=== PATIENT | male | born 1960 | race Caucasian/White ===

== ENCOUNTER 2022-12-06 11:19 | Observation (INO) ==
[2022-12-06 11:40] VITALS: BMI 21.9
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
[2022-12-06] MEDS ORDERED: NS 1,000 ML IV 1,000 ML ONE (11:58)
[2022-12-06] MEDS ORDERED: NS 1,000 ML IV 1,000 ML IV ONE (12:02)
[2022-12-06 12:24] LABS: BASOPHILS % (AUTO) 0.3 % (0.2-1.0); EOSINOPHILS # (AUTO) 0.1 x10^3/uL (0.0-0.2); EOSINOPHILS % (AUTO) 0.8 % (0.9-2.9); HEMATOCRIT 44.1 % (42.0-54.0); HEMOGLOBIN 15.3 g/dL (13.5-18.0); LYMPHOCYTES % (AUTO) 15.4 % (21.0-51.0); MEAN CORPUSCULAR HEMOGLOBIN 31.7 pg (27.0-34.0); MEAN CORPUSCULAR HGB CONC 34.7 g/dL (33.0-35.0); MEAN CORPUSCULAR VOLUME 91.2 fL (80.0-100.0); MEAN PLATELET VOLUME 7.9 fL (7.4-11.0); NEUTROPHILS # (AUTO) 9.6 x10^3/uL (2.2-4.8); NEUTROPHILS % (AUTO) 75.5 % (42.0-75.0); PLATELET COUNT 272 X10^3/uL (150.0-450.0); RED BLOOD COUNT 4.84 X10^6/uL (4.7-6.0); RED CELL DISTRIBUTION WIDTH 12.8 % (11.6-16.5); WHITE BLOOD COUNT 12.8 X10^3/uL (3.6-10.0)
[2022-12-06 12:28] LABS: INR 1.02 (0.8-1.3)
[2022-12-06 12:32] LABS: ALANINE AMINOTRANSFERASE 24 Units/L (12-78); ALBUMIN 3.2 g/dL (3.4-5.0); ALKALINE PHOSPHATASE 95 Units/L (46-116); ASPARTATE AMINO TRANSFERASE 25 Units/L (15-37); BLOOD UREA NITROGEN 7 mg/dL (7-18); CALCIUM 8.6 mg/dL (8.5-10.1); CARBON DIOXIDE 29.6 mmol/L (21-32); CHLORIDE 97 mmol/L (98-107); COR CA(FOR HYPOALB) 9.2 mg/dL (8.5-10.1); COR NA(FOR HYPERGLY) 134 mmol/L (136-145); CREATININE 1.02 mg/dL (0.70-1.30); GLUCOSE 123 mg/dL (65-99); POTASSIUM 3.8 mmol/L (3.5-5.1); SODIUM 133 mmol/L (136-145); TOTAL PROTEIN 6.4 g/dL (6.4-8.2); eGFR NON BLACK RACES > 60 (>60)
[2022-12-06] MEDS ORDERED: ZOFRAN INJ 4 MG VIAL IVP ONE (12:49)
[2022-12-06] MEDS ORDERED: MORPHINE SULFATE INJ 4 MG IVP ONE (12:49)
[2022-12-06] MEDS ORDERED: ZOFRAN INJ 4 MG VIAL ONE (12:50)
[2022-12-06] MEDS ORDERED: MORPHINE SULFATE INJ 4 MG ONE (12:50)
--- NOTE | 2022-12-06 14:16 | CT ---
HISTORYLeft lower quadrant pain, hematocheziaSTUDYCT abdomen pelvis with contrastTechnique: Axial post-contrast images with coronal and sagittal reformats. Dose reduction procedures were used with mA/kv adjusted for body size.COMPARISONNoneFINDINGSThe lung bases are clear. The liver, spleen, adrenal glands, and pancreas are within normal limits. No opaque stones are present within the gallbladder. The kidneys are unobstructed and without stones or masses. No ureteral calculi are identified. Abdominal aorta is normal in caliber. Mild calcific atherosclerotic changes present. No enlarged intraperitoneal or retroperitoneal lymphadenopathy is identified. The appendix is not identified. No secondary signs of appendicitis are present. There are no findings suggestive of enteritis or diverticulitis. However, there is transmural thickening involving the colon from the distal transverse colon through the proximal to mid sigmoid colon. This is associated with some mucosal enhancement and pericolonic inflammation. Findings are most consistent with an acute colitis possible etiologies include infectious colitis, inflammatory colitis, and, considering the distribution ischemic colitis. Ischemic colitis should be clinically excluded. No pericolonic abscess is identified. Examination of the pelvis demonstrated no evidence for pelvic masses, pelvic fluid, or pelvic lymphadenopathy. No bladder abnormality is identified. No lytic or blastic skeletal lesions of significance are identified.IMPRESSIONFindings consistent with segmental acute colitis involving the distal most transverse colon, entire descending colon and proximal to mid sigmoid colon. Possible etiologies include inflammatory colitis, infectious colitis, and considering the distribution, ischemic colitis. Ischemic colitis should be clinically excluded.Electronically signed by: CANDELARIA GUILLEN (Dec 06, 2022 14:14:31)
[2022-12-06] MEDS ORDERED: FLAGYL IV PREMIX 500 MG BAG 500 MG/100 ML BAG IV ONE ×2 (15:05→15:14)
[2022-12-06] MEDS ORDERED: CIPRO IV 400 MG PREMIX* 400 MG/200 ML IV.SOLN. IV ONE ×2 (15:05→15:14)
[2022-12-06] MEDS ORDERED: ZOFRAN INJ 4 MG VIAL IVP PRN (15:32)
[2022-12-06] MEDS ORDERED: CATAPRES TAB 0.2 MG PO PRN (15:32)
[2022-12-06] MEDS: D5 1/2 NS 1,000 ML 1,000 ML IV SCH (17:00)
[2022-12-06] MEDS: MORPHINE SULFATE INJ 4 MG IVP PRN (19:45)
[2022-12-06] MEDS ORDERED: DULCOLAX TAB EC 5 MG PO ONE (19:47)
[2022-12-06] MEDS ORDERED: CITROMA PO ONE (19:47)
[2022-12-06] MEDS ORDERED: LIPITOR TAB 80 MG PO SCH (21:00)
[2022-12-06] MEDS ORDERED: FLEXERIL TAB 10 MG PO SCH (21:00)
[2022-12-06] MEDS: CIPRO IV 400 MG PREMIX* 400 MG/200 ML IV.SOLN. IV SCH (21:10)
[2022-12-06] MEDS: FLAGYL IV PREMIX 500 MG BAG 500 MG/100 ML BAG IV SCH (21:11)
[2022-12-06] MEDS: NEURONTIN TAB 600 MG PO SCH (21:14)
[2022-12-06] MEDS ORDERED: GOLYTELY or GAVILYTE or Equivalent PO SCH (22:00)
[2022-12-07] MEDS: D5 1/2 NS 1,000 ML 1,000 ML IV SCH ×2 (00:30→08:09)
[2022-12-07] MEDS ORDERED: PHARMACY CONSULT - POTASSIUM & MAGNESIUM XX SCH (02:00)
[2022-12-07] MEDS ORDERED: K-DUR TAB 20 MEQ PO SCH (02:00)
[2022-12-07] MEDS: NEURONTIN TAB 600 MG PO SCH (05:37)
[2022-12-07] MEDS: FLAGYL IV PREMIX 500 MG BAG 500 MG/100 ML BAG IV SCH (05:37)
[2022-12-07 06:23] LABS: BASOPHILS % (AUTO) 0.3 % (0.2-1.0); EOSINOPHILS # (AUTO) 0.1 x10^3/uL (0.0-0.2); HEMOGLOBIN 14.3 g/dL (13.5-18.0); LYMPHOCYTES # (AUTO) 1.7 X10^3/uL (1.3-2.9); LYMPHOCYTES % (AUTO) 14.2 % (21.0-51.0); MEAN CORPUSCULAR HGB CONC 34.9 g/dL (33.0-35.0); MEAN CORPUSCULAR VOLUME 91.6 fL (80.0-100.0); MEAN PLATELET VOLUME 8.3 fL (7.4-11.0); MONOCYTES # (AUTO) 0.9 x10^3/uL (0.3-0.8); MONOCYTES % (AUTO) 7.6 % (0.0-13.0); NEUTROPHILS # (AUTO) 9.1 x10^3/uL (2.2-4.8); NEUTROPHILS % (AUTO) 76.9 % (42.0-75.0); PLATELET COUNT 262 X10^3/uL (150.0-450.0); RED BLOOD COUNT 4.47 X10^6/uL (4.7-6.0); RED CELL DISTRIBUTION WIDTH 12.8 % (11.6-16.5); WHITE BLOOD COUNT 11.9 X10^3/uL (3.6-10.0)
[2022-12-07 06:45] LABS: ALANINE AMINOTRANSFERASE 27 Units/L (12-78); ALBUMIN 2.9 g/dL (3.4-5.0); ALKALINE PHOSPHATASE 87 Units/L (46-116); ASPARTATE AMINO TRANSFERASE 27 Units/L (15-37); BLOOD UREA NITROGEN 5 mg/dL (7-18); CALCIUM 8.6 mg/dL (8.5-10.1); CARBON DIOXIDE 30.8 mmol/L (21-32); CHLORIDE 100 mmol/L (98-107); COR CA(FOR HYPOALB) 9.5 mg/dL (8.5-10.1); CREATININE 0.83 mg/dL (0.70-1.30); GLUCOSE 102 mg/dL (65-99); POTASSIUM 3.7 mmol/L (3.5-5.1); SODIUM 136 mmol/L (136-145); TOTAL PROTEIN 6.1 g/dL (6.4-8.2); eGFR NON BLACK RACES > 60 (>60)
--- NOTE | 2022-12-07 07:56 | DR.H&P ---
H&P History & Physical for Day of: H&P Date: 12/06/22 Chief Complaint Chief Complaint: Lower abdominal pain with diarrhea and bloody stools. Allergies Allergies Allergy/AdvReac Type Severity Reaction Status Date / Time No Known Allergies Allergy Verified 12/06/22 11:41 History of Present Illness History of Present Illness: This is a pleasant 62-year-old white male who presented to [facility] emergency department at the request of his primary care provider. On the night of 12/05/2022 he developed lower abdominal pain followed by clear diarrhea that later progressed over 2 hours to bright red bloody diarrhea with clots. Once he got to the emergency department here in [facility] he had a CT of the abdomen pelvis which showed colitis jail in the transverse colon throughout the descending colon to jail of the sigmoid colon. His hemoglobin was stable had a positive Hemoccult and we elected to keep the and start him on IV Cipro and Flagyl and do stool cultures as he could have infectious diarrhea causing this. Past Medical History Past Medical History: Migraines and Hypertension Family History Family Medical History: [place] and Coronary Artery Disease Social History Does patient currently use any type of tobacco product: Yes Have you used tobacco products in the last 12 months: Yes Type of Tobacco Use: Cigarettes Does any household member use tobacco: No Alcohol Use: None Drug Use: None Medications Home Medications: Home Medications Medication Instructions Recorded Confirmed Type atorvastatin 80 mg tablet 80 mg PO QPM 12/06/22 12/06/22 History clonidine HCl 0.2 mg tablet 0.2 mg PO Q6H PRN blood pressure 12/06/22 12/06/22 History cyclobenzaprine 10 mg tablet 10 mg PO QPM 12/06/22 12/06/22 History gabapentin 600 mg tablet 600 mg PO TID 12/06/22 12/06/22 History lisinopril 40 mg tablet 40 mg PO QDAY 12/06/22 12/06/22 History meloxicam 15 mg tablet 15 mg PO QDAY 12/06/22 12/06/22 History Labs Result Diagrams: 12/07/22 05:17 12/07/22 05:17 Labs: Laboratory WBC 11.9 X10^3/uL (3.6-10.0) H 12/07/22 05:17 RBC 4.47 X10^6/uL (4.7-6.0) L 12/07/22 05:17 Hgb 14.3 g/dL (13.5-18.0) 12/07/22 05:17 Hct 41.0 % (42.0-54.0) L 12/07/22 05:17 MCV 91.6 fL (80.0-100.0) 12/07/22 05:17 MCH 32.0 pg (27.0-34.0) 12/07/22 05:17 MCHC 34.9 g/dL (33.0-35.0) 12/07/22 05:17 RDW 12.8 % (11.6-16.5) 12/07/22 05:17 Plt Count 262 X10^3/uL (150.0-450.0) 12/07/22 05:17 MPV 8.3 fL (7.4-11.0) 12/07/22 05:17 Neut % (Auto) 76.9 % (42.0-75.0) H 12/07/22 05:17 Lymph % (Auto) 14.2 % (21.0-51.0) L 12/07/22 05:17 [place] % (Auto) 7.6 % (0.0-13.0) 12/07/22 05:17 Eos % (Auto) 1.0 % (0.9-2.9) 12/07/22 05:17 Baso % (Auto) 0.3 % (0.2-1.0) 12/07/22 05:17 Neut # (Auto) 9.1 x10^3/uL (2.2-4.8) H 12/07/22 05:17 Lymph # (Auto) 1.7 X10^3/uL (1.3-2.9) 12/07/22 05:17 [place] # (Auto) 0.9 x10^3/uL (0.3-0.8) H 12/07/22 05:17 Eos # (Auto) 0.1 x10^3/uL (0.0-0.2) 12/07/22 05:17 Baso # (Auto) 0.0 X10^3/uL (0.0-0.1) 12/07/22 05:17 Absolute Nucleated RBC 0.0 /100WBC 12/07/22 05:17 PT 13.3 SECONDS (11.8-14.3) 12/06/22 12:05 INR Target Range - 12/06/22 12:05 INR 1.02 (0.8-1.3) 12/06/22 12:05 APTT 31.5 SECONDS (22.9-36.5) 12/06/22 12:05 PTT Comment - 12/06/22 12:05 Sodium 136 mmol/L (136-145) 12/07/22 05:17 Corrected Sodium TNP 12/07/22 05:17 Potassium 3.7 mmol/L (3.5-5.1) 12/07/22 05:17 Chloride 100 mmol/L (98-107) 12/07/22 05:17 Carbon Dioxide 30.8 mmol/L (21-32) 12/07/22 05:17 BUN 5 mg/dL (7-18) L 12/07/22 05:17 Creatinine 0.83 mg/dL (0.70-1.30) 12/07/22 05:17 Est GFR (MDRD) Af Amer > 60 (>60) 12/07/22 05:17 Est GFR (MDRD) Non-Af > 60 (>60) 12/07/22 05:17 Glucose 102 mg/dL (65-99) H 12/07/22 05:17 Lactic Acid 0.5 mmol/L (0.4-2.0) 12/06/22 14:55 Calcium 8.6 mg/dL (8.5-10.1) 12/07/22 05:17 Corrected Calcium 9.5 mg/dL (8.5-10.1) 12/07/22 05:17 Total Bilirubin 0.30 mg/dL (0.2-1.0) 12/07/22 05:17 AST 27 Units/L (15-37) 12/07/22 05:17 ALT 27 Units/L (12-78) 12/07/22 05:17 Alkaline Phosphatase 87 Units/L (46-116) 12/07/22 05:17 Total Protein 6.1 g/dL (6.4-8.2) L 12/07/22 05:17 Albumin 2.9 g/dL (3.4-5.0) L 12/07/22 05:17 Globulin 3.2 g/dL (2.5-4.5) 12/07/22 05:17 Albumin/Globulin Ratio 0.9 Ratio (1.1-2.1) L 12/07/22 05:17 Stool Occult Blood Positive (NEGATIVE) A 12/07/22 06:14 Blood Type O POSITIVE 12/06/22 12:10 Antibody Screen Negative 12/06/22 12:05 Review of Systems Constitutional: No Symptoms Reported Eyes: No Symptoms Reported ENT: No Symptoms Reported Respiratory: No Symptoms Reported Cardiovascular: No Symptoms Reported Gastrointestinal: Abdominal Pain, Diarrhea and Hematochezia; denies Vomiting, Constipation or Melena Musculoskeletal: No Symptoms Reported Skin: No Symptoms Reported Neurological: No Symptoms Reported Physical Exam Vital Signs: Vital Signs Temperature 98.2 F Temperature 98.2 F Pulse Rate [Left Radial] 100 Pulse Rate [Left Radial] 105 Respiratory Rate 20 Respiratory Rate 20 Blood Pressure [Right Arm] 143/58 Blood Pressure [Left Arm] 167/97 O2 Sat by Pulse Oximetry 95 O2 Sat by Pulse Oximetry 91 Oriented: Normal, Time, Person and Place Eyes: Normal Ear: Normal Respiratory: Clear Throughout Cardiovascular: Normal : Normal Auscultation: Bowel Sounds: Normal Palpation: Normal Tenderness: RLQ, LLQ and Moderate Musculoskeletal: Normal Psychiatric: Normal Mood Description: Calm Affect: Normal Speech Pattern: Clear Assessment/Plan (1) Acute colitis: Status: Acute Plan: Follow-up with stool cultures when available. Continue empiric ciprofloxacin and Flagyl. (2) Hematochezia: Status: Acute Plan: General surgery has been consulted.
[2022-12-07] MEDS: CIPRO IV 400 MG PREMIX* 400 MG/200 ML IV.SOLN. IV SCH (08:09)
[2022-12-07] MEDS: MORPHINE SULFATE INJ 4 MG IVP PRN (08:10)
[2022-12-07] MEDS: ZESTRIL TAB 40 MG PO SCH ×2 (08:10→08:40)
[2022-12-07 08:40] VITALS: BP 185/99; PULSE 85; RESP 20; TEMP 98.1; O2SAT 96
--- NOTE | 2022-12-09 15:30 | DR.CONSULT ---
CONSULT Consultation for Day of: Date: 12/06/22 Chief Complaint Chief Complaint: Abdominal pain, diarrhea, passing blood per rectum Allergies Allergies Allergy/AdvReac Type Severity Reaction Status Date / Time No Known Allergies Allergy Verified 12/06/22 11:41 History of Present Illness History of Present Illness: This is a 62 year old male who presented with a 1-d ay history of abdominal pain with diarrhea and blood in the diarrhea. He has no prior history of colitis or blood per rectum. CT scan in the emergency room consistent with colitis from the transverse colon to the sigmoid colon . Past Medical History Past Medical History: Dyslipidemia, Migraines and Hypertension Family History Family Medical History: [place] and Coronary Artery Disease Social History Does patient currently use any type of tobacco product: Yes Have you used tobacco products in the last 12 months: Yes Type of Tobacco Use: Cigarettes Does any household member use tobacco: No Alcohol Use: None Drug Use: None Medications Home Medications: No Known Allergies Allergy (Verified 12/06/22 11:41) CONTINUE taking the following medications atorvastatin 80 mg tablet 80 mg PO QPM 12/06/22 [History] clonidine HCl 0.2 mg tablet 0.2 mg PO Q6H PRN blood pressure 12/06/22 [History] cyclobenzaprine 10 mg tablet 10 mg PO QPM 12/06/22 [History] gabapentin 600 mg tablet 600 mg PO TID 12/06/22 [History] lisinopril 40 mg tablet 40 mg PO QDAY 12/06/22 [History] meloxicam 15 mg tablet 15 mg PO QDAY 12/06/22 [History] New Prescriptions azithromycin 250 mg tablet (Zithromax Z-Vince) See Rx Instructions .Route .COMPLEX 5 days #6 tabs 12/07/22 [Rx] Review of Systems Constitutional: See HPI Eyes: No Symptoms Reported ENT: No Symptoms Reported Respiratory: No Symptoms Reported Cardiovascular: No Symptoms Reported Gastrointestinal: See HPI Genitourinary: No Symptoms Reported Musculoskeletal: No Symptoms Reported Skin: No Symptoms Reported Neurological: No Symptoms Reported Physical Exam Vital Signs: Hgb=14.3, WBC=11.9, BMP WNL Oriented: Normal, Time, Person and Place Eyes: Normal Ear: Normal Nose: Normal Throat: Normal Respiratory: Clear Throughout Cardiovascular: Normal : Normal Auscultation: Bowel Sounds: Normal Palpation: Normal Tenderness: Diffuse (and mild) Skin: Normal Musculoskeletal: Normal Mood Description: Anxious Affect: Anxious Speech Pattern: Appropriate Plan (1) Acute colitis: Status: Acute Plan: Currently being hydrated. Differential of infectious, ischemic or inflammatory. Stool cultures have been obtained . Will do bowel prep, and plan colonoscopy with biopsy. (2) Hematochezia: Status: Acute
--- NOTE | 2022-12-09 15:36 | NOTE.SOAP ---
Soap Note Note for Day of Date of Exam: 12/07/22 Subjective Data Subjective Data: Admitted with diagnosis of colitis. Juju culture growing Campylobacter. Objective Data Temperature: 98.1 F Pulse Rate: 85 Respiratory Rate: 20 Blood Pressure: 185/99 O2 Sat by Pulse Oximetry: 96 Objective Data: Mildly and diffusely tender abdomen. Tolerated bowel prep. Assessment Assessment: Infectious colitis, Campylobacter Plan Plan: Cancel colonoscopy , Plan colonoscopy as outpatient after outpatient treatment of Campylobacter.
== END 2022-12-07 10:30 | disposition home or self-care (01) ==
LOC: ER 11:19 → MED/SURG 15:03 → INTOOBSV 15:03 → MED/SURG 15:55
PROVIDERS: ADMIT Family Medicine; ATTEND Family Medicine
DX: K92.1 Melena; A04.5 Campylobacter enteritis; I10 Essential (primary) hypertension; Z79.899 Other long term (current) drug therapy; R10.32 Left lower quadrant pain